=== PATIENT | male | born 1950 | race Caucasian/White ===

== ENCOUNTER 2017-06-28 10:28 | Day surgery (SDC) | payer MEDICARE, BC ==
[~2017-06-28 10:28] MED LIST: Buffered Lidocaine 0.9% SYRIN* 5 ML/SYR SYRINGE INTRADERM ONE; Dexamethasone IV* 4 MG/ML 1 ML (4 MG) IV SLOW PU ONE; Famotidine IV* 10 MG/ML 2 ML (20 mg) IV ONE
[2017-06-28] MEDS ORDERED: ceFAZolin 2 GM PREMIX (*) 2 GM/50 ML BAG IVPB ONE (10:38)
[2017-06-28] MEDS ORDERED: Famotidine IV* 10 MG/ML 2 ML (20 mg) ONE (10:38)
[2017-06-28] MEDS ORDERED: Dexamethasone IV* 4 MG/ML 1 ML (4 MG) ONE (10:38)
[2017-06-28] MEDS ORDERED: Buffered Lidocaine 0.9% SYRIN* 5 ML/SYR SYRINGE ONE (10:39)
[2017-06-28] MEDS ORDERED: Propofol* 10 MG/ML 20 ML BTL IV PUSH ONE (12:11)
[2017-06-28] MEDS ORDERED: Midazolam* 1 MG/ML 10 ML VIAL (10 MG) ONE (12:11)
[2017-06-28] MEDS ORDERED: fentaNYL* 50 MCG/ML 2 ML VIAL (100 MCG VIAL) ONE (12:11)
[2017-06-28] MEDS ORDERED: Ondansetron INJ* 2 MG/ML VIAL ONE (12:11)
[2017-06-28] MEDS ORDERED: Naloxone* 0.4 MG/ML 1 ML VIAL IV PRN (12:31)
[2017-06-28] MEDS ORDERED: Lidocaine 1% MPF wEPI 200,000* 30 ML SDV ONE (12:35)
[2017-06-28] MEDS ORDERED: Bupivacaine 0.25% SDV* 30 ML ONE (12:36)
[2017-06-28 15:09] VITALS: BP 119/64
== END 2017-06-28 15:22 | disposition home or self-care (01) ==
LOC: OR 10:28
PROVIDERS: ATTEND Plastic Surgery
DX: C44.329 Squamous cell carcinoma of skin of other parts of face (principal); I25.10 Atherosclerotic heart disease of native coronary artery without angina pectoris; I42.9 Cardiomyopathy, unspecified; Z79.01 Long term (current) use of anticoagulants; Z95.810 Presence of automatic (implantable) cardiac defibrillator; I48.92 Unspecified atrial flutter
CPT/HCPCS: 88305; 88331; 88332; J0690; J1100; J2001; J2250; J2405; J2704; J3010

== ENCOUNTER 2018-01-17 12:38 | Inpatient (IN) | payer MEDICARE, BC ==
[~2018-01-17 12:38] MED LIST changes: -Dexamethasone IV* 4 MG/ML 1 ML (4 MG) IV SLOW PU ONE; -Famotidine IV* 10 MG/ML 2 ML (20 mg) IV ONE
[2018-01-17] MEDS ORDERED: ceFAZolin 2 GM PREMIX (*) 2 GM/50 ML BAG IVPB ONE (12:49)
[2018-01-17] MEDS ORDERED: Tranexamic Acid 1,000 MG/10 ML 1,000 MG in NS 0.9% 100 ML* 100 ML IV ONE (13:30)
[2018-01-17 13:36] LABS: INR 0.98 (0.77-1.02)
[2018-01-17] MEDS ORDERED: Midazolam* 1 MG/ML 2 ML VIAL (2 MG) ONE (13:38)
[2018-01-17] MEDS ORDERED: Lidocaine 1%* 5 ML VIAL ONE (14:23)
[2018-01-17] MEDS ORDERED: ROPIVACAINE 5 MG/ML 30 ML BTL (0.5%) ONE (14:23)
[2018-01-17] MEDS ORDERED: Ropivacaine (OR use only) 2 MG/ML 10 ML ONE ×2 (14:49→17:04)
[2018-01-17] MEDS ORDERED: Propofol* 10 MG/ML 20 ML BTL IV PUSH ONE ×2 (15:49→16:26)
[2018-01-17] MEDS ORDERED: Bupivacaine-MPF SPINAL* 7.5 MG/ML - 2ML AMP ONE (15:49)
[2018-01-17] MEDS ORDERED: Lidocaine 2% PF * 5 ML VIAL ONE (15:49)
[2018-01-17] MEDS ORDERED: Phenylephrine INJ* 10 MG/ML 1 ML VIAL (10 MG) ONE (15:50)
[2018-01-17] MEDS ORDERED: Bupivacaine 0.5% PF 10 ML VIAL INJ ONE (16:51)
[2018-01-17] MEDS ORDERED: HYDROcodone/ACETAMIN 5-325 MG* 1 TAB PO PRN (17:04)
[2018-01-17] MEDS ORDERED: Ondansetron INJ* 2 MG/ML VIAL IV PRN ×2 (17:04→17:47)
[2018-01-17] MEDS ORDERED: DiMENhydriNATE IV* 50 MG/ML VIAL IV PUSH PRN (17:04)
[2018-01-17] MEDS ORDERED: fentaNYL* 50 MCG/ML 2 ML VIAL (100 MCG VIAL) IV PRN (17:04)
[2018-01-17] MEDS ORDERED: Naloxone* 0.4 MG/ML 1 ML VIAL IV PRN (17:04)
[2018-01-17] MEDS ORDERED: Morphine INJ* 2 MG/ML 1 ML SYRINGE (TWO MG - NEW SYRINGE VERSION) IV PRN ×2 (17:04→17:47)
[2018-01-17] MEDS ORDERED: Acetaminophen TAB* 325 MG PO PRN (17:04)
[2018-01-17] MEDS ORDERED: oxyCODONE/Acetamin 5/325 MG* TAB PO PRN (17:47)
[2018-01-17] MEDS ORDERED: Cyclobenzaprine TAB* 10 MG PO PRN (17:47)
[2018-01-17] MEDS ORDERED: Bisacodyl SUPP* 10 MG SUPP PR PRN (17:47)
[2018-01-17] MEDS ORDERED: Ondansetron TAB* 4 MG PO PRN (17:47)
[2018-01-17] MEDS ORDERED: Polyethylene Glycol 3350* 17 GM PACKET PO PRN (17:47)
[2018-01-17] MEDS ORDERED: diPHENhydraMINE IV* 50 MG/ML 1 ml VIAL (BENADRYL) IV PRN (17:47)
[2018-01-17] MEDS ORDERED: Magnesium Hydroxide LIQ* 30 ML UDC PO PRN (17:47)
[2018-01-17] MEDS ORDERED: HYDROcodone/ACETAMIN 5-325 MG* 1 TAB ONE (18:28)
--- NOTE | 2018-01-17 18:29 | RAD ---
INDICATION: Right knee arthroplasty COMPARISON: December 14, 2017 TECHNIQUE: Portable AP and crosstable lateral imaging was performed. FINDINGS: There is right knee arthroplasty. Both femoral and tibial components appear well seated. There is overlying cooling jacket. IMPRESSION: INTERVAL RIGHT KNEE ARTHROPLASTY.
[2018-01-17] MEDS ORDERED: Warfarin TAB(*) 6 MG PO ONE (21:00)
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
[2018-01-17] MEDS: Magnesium Hydroxide LIQ* 30 ML UDC PO SCH (21:39)
[2018-01-17] MEDS: Docusate CAP* 100 MG PO SCH (21:40)
[2018-01-17] MEDS: oxyCODONE/Acetamin 5/325 MG* TAB PO PRN (21:41)
[2018-01-17] MEDS: Digoxin TAB* 0.125 MG PO SCH (21:42)
[2018-01-17] MEDS: Sotalol TAB* 80 MG PO SCH (21:45)
[2018-01-17] MEDS: ceFAZolin 1 GM VIAL(*) 1 GM in NS 0.9% 50 ML* 50 ML IVPB SCH (21:46)
[2018-01-17] MEDS: Acetaminophen TAB* 325 MG PO SCH (21:52)
[2018-01-17] MEDS: oxyCODONE TAB* 5 MG TAB PO PRN (23:57)
[2018-01-18] MEDS: Acetaminophen TAB* 325 MG PO SCH ×3 (05:08→20:58)
[2018-01-18] MEDS: oxyCODONE/Acetamin 5/325 MG* TAB PO PRN ×4 (05:58→22:57)
[2018-01-18] MEDS: ceFAZolin 1 GM VIAL(*) 1 GM in NS 0.9% 50 ML* 50 ML IVPB SCH ×2 (06:07→14:18)
[2018-01-18 07:15] LABS: Hematocrit 36 % (42-52); Hemoglobin 11.9 g/dl (14.0-18.0); Mean Platelet Volume 7.7 um3 (7.4-10.4); Platelet Count 260 10^3/ul (150-450)
[2018-01-18 07:27] LABS: EGFR Non-African American 92.9 (>60)
[2018-01-18 07:51] LABS: INR 1.07 (0.77-1.02)
[2018-01-18] MEDS: Magnesium Hydroxide LIQ* 30 ML UDC PO SCH ×2 (08:22→20:58)
[2018-01-18] MEDS: Docusate CAP* 100 MG PO SCH ×2 (08:22→20:56)
[2018-01-18] MEDS: Digoxin TAB* 0.125 MG PO SCH ×2 (08:23→20:56)
[2018-01-18] MEDS: Sotalol TAB* 80 MG PO SCH ×2 (08:23→20:57)
--- NOTE | 2018-01-18 09:24 | PN ---
Progress Note - Progress Note Date of Service: 01/18/18 SOAP: Subjective: []Patient was seen and examined today. He is feeling well with well controlled right knee pain. He denies chest pain, shortness of breath, dizziness, nausea. He has a history of a right fused ankle. Objective: []General: Well appearing, NAD RLE: Right knee dressing CDI. Thigh soft and nontender. DP2+. Sensation intact distally. No DF/PF due to ankle fusion BL LE: Calves supple and nontender without erythema, edema or palpable cords Assessment: []SP right total knee arthroplasty Plan: []wbat PT/OT lovenox, coumadin 8 mg today Laboratory Last Values Hgb 11.9 g/dl (14.0-18.0) L 01/18/18 07:02 Hct 36 % (42-52) L 01/18/18 07:02 Plt Count 260 10^3/ul (150-450) 01/18/18 07:02 MPV 7.7 um3 (7.4-10.4) 01/18/18 07:02 INR (Anticoag Therapy) 1.07 (0.77-1.02) H 01/18/18 07:02 APTT 30.1 seconds (26.0-36.3) 01/17/18 13:15 Sodium 134 mmol/L (135-145) L 01/18/18 07:02 Potassium 4.1 mmol/L (3.5-5.0) 01/18/18 07:02 Chloride 101 mmol/L (101-111) 01/18/18 07:02 Carbon Dioxide 27 mmol/L (22-32) 01/18/18 07:02 Anion Gap 6 mmol/L (2-11) 01/18/18 07:02 BUN 18 mg/dL (6-24) 01/18/18 07:02 Creatinine 0.82 mg/dL (0.67-1.17) 01/18/18 07:02 Est GFR ( Amer) 112.4 (>60) 01/18/18 07:02 Est GFR (Non-Af Amer) 92.9 (>60) 01/18/18 07:02 BUN/Creatinine Ratio 22.0 (8-20) H 01/18/18 07:02 Glucose 194 mg/dL (70-100) H 01/18/18 07:02 Calcium 8.6 mg/dL (8.6-10.3) 01/18/18 07:02 Blood Type A Negative 01/17/18 13:15 Antibody Screen Negative 01/17/18 13:15 Vital Signs Temp 98.3 F 01/18/18 07:35 Pulse 70 01/18/18 08:23 Resp 16 01/18/18 08:24 BP 128/65 01/18/18 07:35 Pulse Ox 98 01/18/18 08:00 Intake & Output 01/17/18 01/18/18 01/18/18 18:59 06:59 18:59 Intake Total 1300 1200 1030 Output Total 550 1975 200 Balance 750 -775 830 Weight 226 lb 6.4 oz Intake: IV Fluids 7867 907 0137 ABX - CEFAZOLIN 50 50 LR 1300 250 980 Oral 900 Output: Urine 50 Watkins 350 1925 Emesis 200 Estimated Blood Loss 200 Other: # Bowel Movements 0
[2018-01-18] MEDS ORDERED: Digoxin TAB* 0.125 MG PO ONE (12:00)
[2018-01-18] MEDS: Enoxaparin(*) 30 MG/0.3 ML SYR SUBCUT SCH (12:32)
--- NOTE | 2018-01-18 12:39 | OP ---
OPERATIVE NOTE: DATE OF OPERATION: 01/17/18 DATE OF : 46 ATTENDING SURGEON: Pura Guerra MD TERRITORY SERVICE REPRESENTATIVE: BENITEZ Caruso Ms. did help throughout the procedure with preparation of the leg, wound retraction, manipulation of the knee, and wound closure. ANESTHESIOLOGIST: Dr. Jones. ANESTHESIA: Spinal. PRE-OP DIAGNOSIS: Severe end-stage degenerative osteoarthritis of the right knee joint. POST-OP DIAGNOSIS: Severe end-stage degenerative osteoarthritis of the right knee joint. OPERATIVE PROCEDURE: Right total knee arthroplasty. TOURNIQUET TIME: 68 minutes. COMPLICATIONS: None. ESTIMATED BLOOD LOSS: 300 cc. SPECIMEN: Bone and cartilage from the right knee joint sent to pathology. HARDWARE USED: This is cemented [employer] total knee arthroplasty hardware. Two packages of Simplex bone cement. For the femur, a size 7 right posterior stabilized Legion femoral component. For the tibia, a size 5 right Jagruti II tibial base plate. For the insert, an 11-mm posterior stabilized articular insert, size 5/6. For the patella, a 35-mm 3-peg All Poly patella. BRIEF HISTORY/INDICATION: Mr. Stone is a 68-year-old gentleman with years of increasingly severe right knee pain. Radiograph confirmed severe end-stage arthritis with [id number] contact. He failed conservative treatment with the antiinflammatories, pain medication, intraarticular injection, and physical therapy. Due to continued pain and decreased quality of life, he elected to undergo right total knee arthroplasty. Informed consent was obtained from the patient. He understood the risks of surgery included, but were not limited to bleeding, infection, damage to nearby structures, continued pain, need for further surgery, intraoperative fracture, nerve palsy, hardware failure or loosening, knee stiffness, loss of motion, stroke, heart attack, blood clot, and . He wished to proceed. INTRAOPERATIVE FINDINGS: Intraoperatively, the patient was noted to have severe flexion contracture of 20 degrees to begin the case. He had significant hamstring tightness throughout the case. He had complete loss of cartilage in the medial and patellofemoral compartment. DESCRIPTION OF PROCEDURE: Mr. Stone was identified in the preanesthesia unit. His right lower extremity was marked as the correct operative site. Informed consent was signed and placed in the chart. The patient was taken to the operating room and placed under spinal anesthesia. A Watkins catheter was placed. Tourniquet was placed on the right thigh. Right lower extremity was prepped and draped in the usual sterile fashion. Preop time-out was made to correctly identify the patient, side, and site. Appropriate perioperative antibiotics were given within 1 hour of incision. Tourniquet was inflated with total tourniquet time for this procedure was 68 minutes. A midline incision was made with a 10-blade and carried down to the extensor mechanism. A new 10-blade was used to make a standard medial parapatellar arthrotomy. Patella was subluxed laterally. Electrocautery was used to subperiosteally elevate the soft tissue off the superomedial tibia to the mid sagittal plane. The knee was flexed up. The anterior horn of the lateral meniscus and ACL were sharply released. A drill was used to enter the distal femur. Intramedullary distal femoral cutting guide was pinned on the distal femur. Oscillating saw was used to make a distal femoral cut. Next, the external rotation guide was pinned on the distal femur. Distal femur was sized to a size 7. Size 7 multi-cutting jig was pinned on the distal femur. Oscillating saw was used to make the appropriate 4 chamfer cuts. The PCL was completely released and tibia was subluxed anteriorly. Intramedullary proximal tibial cutting guide was placed and pinned into position. Oscillating saw was used to make the proximal tibial cut perpendicular to the mechanical axis of the tibia. The bone was carefully removed. The knee was brought out into full extension. Spacer block had good fit with the knee in full extension. Medial and lateral ligaments were well balanced. Flexion and extension gap was well balanced. The knee was flexed up. Lamina chiropractic care was placed both medially and laterally. Any remaining meniscus was carefully removed using electrocautery. Curved osteotome was used to remove any posterior osteophytes. Throughout the case, a hamstring contracture was noted to be significant. The knee was flexed up. Tibial tray and drop tommie showed satisfactory tibial cut. A size 7 right femoral trial was impacted onto the distal femur and had excellent fit. The box for the posterior stabilized implant was prepared using a reamer and box cut osteotome. Size 5 tibial tray trial with an 11-mm insert trial was placed and the knee was taken through a range of motion. The knee had full extension to 130 degrees of flexion with satisfactory patellofemoral tracking. The patella was everted. A 9 mm of patellar bone and cartilage was carefully removed using an oscillating saw. Patella was sized to a size 35. Three peg holes were drilled through the size 35 guide. 35 trial patella was placed and the knee was taken through a range of motion. There was satisfactory patellofemoral tracking. All trials were then removed. The tibia was subluxed anteriorly and sized to a size 5. Proximal tibia was prepared using a size 5 keel punch. All bony cut surfaces were copiously irrigated with sterile saline and dried. Final implants were cemented into place starting with the tibia followed by the femur and last the patella. An 11 mm insert trial was locked into position on the tibial tray. The tourniquet was turned down and cement was allowed to fully cure. The insert trial was removed and any excess cement was removed. An 11 mm posterior stabilized insert was locked into position on the tibial tray. Stability of the insert was checked and rechecked and noted to be stable. The knee was once again copiously irrigated with sterile saline. The extensor mechanism was closed using interrupted #1 Vicryl. The rest of the incision was closed in a layered fashion using 0 and 2-0 Vicryl. Skin was closed using running 3-0 nylon suture. Sterile Xeroform, 4x4s, and Webril were used to cover the incision. Asad wrap and cold pack were placed over this. The patient's anesthesia was reversed without difficulty. He was taken to the PACU in stable condition. Intended weightbearing will be weightbearing as tolerated. Intended DVT prophylaxis will be Coumadin with a Lovenox bridge. [id number]/[id number] #: [id number] KANA
[2018-01-18] MEDS: oxyCODONE TAB* 5 MG TAB PO PRN (14:23)
--- NOTE | 2018-01-18 15:27 | PN ---
Subjective Date of Service: 01/18/18 Interval History: Pain control R knee pain is adequate. OOB today. Some nausea. Objective Active Medications: Acetaminophen (Tylenol Tab*) 975 mg PO Q8H [facility] Last Admin: 01/18/18 11:45 Dose: Not Given Bisacodyl (Dulcolax Supp*) 10 mg IN DAILY PRN PRN Reason: constipation Cyclobenzaprine HCl (Flexeril Tab*) 10 mg PO TID PRN PRN Reason: SPASMS Digoxin (Lanoxin Tab*) 0.125 mg PO BID [facility] Last Admin: 01/18/18 08:23 Dose: 0.125 mg Diphenhydramine HCl (Benadryl Iv*) 12.5 mg IV Q6H PRN PRN Reason: PRURITIS Docusate Sodium (Colace Cap*) 100 mg PO BID [facility] Last Admin: 01/18/18 08:22 Dose: 100 mg Enoxaparin Sodium (Lovenox(*)) 30 mg SUBCUT Q24H [facility] Last Admin: 01/18/18 12:32 Dose: 30 mg Lactated Ringer's (Lactated Ringers 1000 Ml Bag*) 1,000 mls @ 100 mls/hr IV PER RATE [facility] Last Admin: 01/18/18 09:10 Dose: 100 mls/hr Lactulose (Lactulose*) 30 ml PO Q6H PRN PRN Reason: constipation Magnesium Hydroxide (Milk Of Magnesia Liq*) 30 ml PO BID [facility] Last Admin: 01/18/18 08:22 Dose: 30 ml Magnesium Hydroxide (Milk Of Magnesia Liq*) 30 ml PO Q6H PRN PRN Reason: constipation Morphine Sulfate (Morphine Inj ((Syringe))*) 4 mg IV Q2H PRN PRN Reason: PAIN Ondansetron HCl (Zofran Inj*) 4 mg IV Q6H PRN PRN Reason: nausea Ondansetron HCl (Zofran Tab*) 4 mg PO Q6H PRN PRN Reason: NAUSEA Oxycodone HCl (Roxycodone Tab*) 10 mg PO Q4H PRN PRN Reason: SEVERE PAIN Last Admin: 01/18/18 14:23 Dose: 10 mg Oxycodone/Acetaminophen (Percocet 5/325 Tab*) 1 tab PO Q4H PRN PRN Reason: PAIN Oxycodone/Acetaminophen (Percocet 5/325 Tab*) 2 tab PO Q4H PRN PRN Reason: PAIN Last Admin: 01/18/18 11:21 Dose: 2 tab Pharmacy Profile Note (Coumadin Daily Reminder*) 1 note FOLLOW UP 1700 ANTOINETTE Polyethylene Glycol/Electrolytes (Miralax*) 17 gm PO DAILY PRN PRN Reason: Constipation Sotalol HCl (Betapace Tab*) 40 mg PO BID [facility] Last Admin: 01/18/18 08:23 Dose: 40 mg Vital Signs - 8 hr 01/18/18 01/18/18 01/18/18 07:35 08:00 08:23 Temperature 98.3 F Pulse Rate 64 70 Respiratory 16 18 Rate Blood Pressure 128/65 (mmHg) O2 Sat by Pulse 98 98 Oximetry 01/18/18 01/18/18 01/18/18 08:24 11:15 11:21 Temperature 98.3 F Pulse Rate 61 Respiratory 16 16 16 Rate Blood Pressure 144/71 (mmHg) O2 Sat by Pulse 97 Oximetry 01/18/18 01/18/18 01/18/18 12:32 14:21 14:23 Temperature Pulse Rate 76 Respiratory 18 18 Rate Blood Pressure (mmHg) O2 Sat by Pulse Oximetry Oxygen Devices in Use Now: None Appearance: Alert, supine in bed. In good spirits. Looks comfortable. Eyes: No Scleral Icterus Respiratory: Symmetrical Chest Expansion and Respiratory Effort, Clear to Auscultation, Clear to Percussion Cardiovascular: NL Sounds; No Murmurs; No JVD, RRR, No Edema, - Extremities: No Edema, No Clubbing, Cyanosis, - - cooling device on R knee Skin: No Rash or Ulcers, No Nodules or Sclerosis, - Neurological: Alert and Oriented x 3, NL Sensation Result Diagrams: 01/18/18 07:02 01/18/18 07:02 Assess/Plan/Problems-Billing Assessment: - Patient Problems (1) Afib Current Visit: No Status: Chronic Priority: Medium Code(s): I48.91 - UNSPECIFIED ATRIAL FIBRILLATION SNOMED Code(s): 96680579 Comment: S/P maze procedure, PPM. Continue digoxin, sotalol, warfarin. Warfarin dosing per Dr. Guerra at this point. (2) Status post mitral valve repair Current Visit: No Status: Acute Priority: Low Code(s): Z98.89 - OTHER SPECIFIED POSTPROCEDURAL STATES * DO NOT USE * SNOMED Code(s): 344287272 Comment: Followed by Dr. Hurley. (3) Cardiomyopathy Current Visit: No Status: Chronic Code(s): I42.9 - CARDIOMYOPATHY, UNSPECIFIED SNOMED Code(s): 27689793 Comment: LVEF 35-40% 06/2014, undoubtably has had more recent echo in Dr. Hurley's office. (4) History of total right knee replacement (TKR) Current Visit: Yes Status: Acute Code(s): Z96.651 - PRESENCE OF RIGHT ARTIFICIAL KNEE JOINT SNOMED Code(s): 1193607673931 Comment: 01/17/2018. Management per Dr. Guerra.
[2018-01-18] MEDS ORDERED: Warfarin TAB(*) 4 MG PO ONE (18:00)
[2018-01-19] MEDS: oxyCODONE/Acetamin 5/325 MG* TAB PO PRN (03:53)
[2018-01-19] MEDS: Acetaminophen TAB* 325 MG PO SCH ×2 (04:11→11:45)
[2018-01-19 06:07] LABS: Hematocrit 31 % (42-52); Hemoglobin 10.3 g/dl (14.0-18.0); Mean Platelet Volume 7.8 um3 (7.4-10.4); Platelet Count 206 10^3/ul (150-450)
[2018-01-19 06:22] LABS: INR 1.31 (0.77-1.02)
[2018-01-19] MEDS: oxyCODONE TAB* 5 MG TAB PO PRN (07:33)
[2018-01-19] MEDS: Magnesium Hydroxide LIQ* 30 ML UDC PO SCH (08:51)
[2018-01-19] MEDS: Docusate CAP* 100 MG PO SCH (08:51)
[2018-01-19] MEDS: Digoxin TAB* 0.125 MG PO SCH (08:52)
[2018-01-19] MEDS: Sotalol TAB* 80 MG PO SCH (08:52)
--- NOTE | 2018-01-19 09:10 | PN ---
Progress Note - Progress Note Date of Service: 01/19/18 SOAP: Subjective: []Patient seen at bedside. He feels well aside form intermittent vomiting which is not associated with long episodes of nausea but rather vomit just after eating and returning to feeling well. Patient vomit while I was in his room today. Denies chest pain, shortness of breath, dizziness. Objective: []General: Well appearing, NAD RLE: Right knee dressing changed. Incision CDI without surrounding erythema. Thigh soft and nontender. DP2+. Sensation intact distally. No DF/PF due to ankle fusion but able to wiggle toes on operative leg BL LE: Calves supple and nontender without erythema, edema or palpable cords Assessment: []SP right total knee arthroplasty Plan: []WBAT PT/OT lovenox, coumadin 6 mg today scopalamine patch ordered Vital Signs Temp 97.5 F 01/19/18 07:23 Pulse 64 01/19/18 08:52 Resp 18 01/19/18 07:33 BP 123/66 01/19/18 07:23 Pulse Ox 94 01/19/18 07:23 Intake & Output 01/18/18 01/19/18 01/19/18 18:59 06:59 18:59 Intake Total 1932 1020 Output Total 300 320 Balance 1632 700 Intake: IV Fluids 1692 ABX - CEFAZOLIN 105 LR 1587 Oral 240 1020 Output: Urine 100 320 Emesis 200 Other: Estimated Void Medium Medium # Voids 1 1 Laboratory Last Values Hgb 10.3 g/dl (14.0-18.0) L 01/19/18 05:36 Hct 31 % (42-52) L 01/19/18 05:36 Plt Count 206 10^3/ul (150-450) 01/19/18 05:36 MPV 7.8 um3 (7.4-10.4) 01/19/18 05:36 INR (Anticoag Therapy) 1.31 (0.77-1.02) H 01/19/18 05:36 APTT 30.1 seconds (26.0-36.3) 01/17/18 13:15 Sodium 134 mmol/L (135-145) L 01/18/18 07:02 Potassium 4.1 mmol/L (3.5-5.0) 01/18/18 07:02 Chloride 101 mmol/L (101-111) 01/18/18 07:02 Carbon Dioxide 27 mmol/L (22-32) 01/18/18 07:02 Anion Gap 6 mmol/L (2-11) 01/18/18 07:02 BUN 18 mg/dL (6-24) 01/18/18 07:02 Creatinine 0.82 mg/dL (0.67-1.17) 01/18/18 07:02 Est GFR ( Amer) 112.4 (>60) 01/18/18 07:02 Est GFR (Non-Af Amer) 92.9 (>60) 01/18/18 07:02 BUN/Creatinine Ratio 22.0 (8-20) H 01/18/18 07:02 Glucose 194 mg/dL (70-100) H 01/18/18 07:02 Calcium 8.6 mg/dL (8.6-10.3) 01/18/18 07:02 Blood Type A Negative 01/17/18 13:15 Antibody Screen Negative 01/17/18 13:15
[2018-01-19] MEDS ORDERED: Scopolamine 1.5 mg* PATCH TRANSDERM SCH (10:00)
[2018-01-19 11:29] VITALS: BP 127/59
[2018-01-19] MEDS: Enoxaparin(*) 30 MG/0.3 ML SYR SUBCUT SCH (11:46)
[2018-01-19] MEDS ORDERED: Warfarin TAB(*) 6 MG PO SCH (17:00)
== END 2018-01-19 14:29 | disposition home health service (06) | DRG 470 ==
LOC: AA 12:38 → SSU 19:53
PROVIDERS: ADMIT Orthopaedic Surgery Adult Reconstructive Orthopaedic Surgery; ATTEND Orthopaedic Surgery Adult Reconstructive Orthopaedic Surgery
PROC: 0SRC0J9 Replacement of Right Knee Joint with Synthetic Substitute, Cemented, Open Approach (ICD-10-PCS; principal; 2018-01-17 15:00)
DX: M17.11 Unilateral primary osteoarthritis, right knee (principal); I42.9 Cardiomyopathy, unspecified; I25.10 Atherosclerotic heart disease of native coronary artery without angina pectoris; M25.461 Effusion, right knee; I48.2 Chronic atrial fibrillation; I10 Essential (primary) hypertension; K63.5 Polyp of colon; N40.0 Benign prostatic hyperplasia without lower urinary tract symptoms; H26.9 Unspecified cataract; R11.2 Nausea with vomiting, unspecified; M24.561 Contracture, right knee; M25.761 Osteophyte, right knee; Z95.0 Presence of cardiac pacemaker; Z98.1 Arthrodesis status; Z85.828 Personal history of other malignant neoplasm of skin; Z90.49 Acquired absence of other specified parts of digestive tract; Z88.8 Allergy status to other drugs, medicaments and biological substances; Z82.49 Family history of ischemic heart disease and other diseases of the circulatory system; Z80.51 Family history of malignant neoplasm of kidney; Z80.0 Family history of malignant neoplasm of digestive organs; Z82.61 Family history of arthritis; Z80.42 Family history of malignant neoplasm of prostate; Z83.511 Family history of glaucoma; Z81.8 Family history of other mental and behavioral disorders; Z95.810 Presence of automatic (implantable) cardiac defibrillator
CPT/HCPCS: 36415; 80048; 85014; 85018; 85049; 85610; 85730; 86850; 86900; 86901; A9270-GY; G8978-GP-CJ; G8979-GP-CH; G8987-GO-CJ; G8988-GO-CJ; G8989-GO-CJ; J0690; J1650; J2250; J2704; J2795

== ENCOUNTER 2021-04-23 08:32 | Observation (INO) ==
[~2021-04-23 08:32] MED LIST changes: -Buffered Lidocaine 0.9% SYRIN* 5 ML/SYR SYRINGE INTRADERM ONE; +Buffered Lidocaine 1% SYRIN 1 ml INTRADERM ONE; +Lactated Ringers 1000 ml BAG 1,000 ML IV SCH
[2021-04-23] MEDS ORDERED: ceFAZolin 2 GM in NS PREMIX 2 GM/100 ML BAG IVPB ONE (09:13)
[2021-04-23 09:23] LABS: INR 1.03 (0.86-1.15)
[2021-04-23 10:04] LABS: Magnesium 2.1 mg/dL (1.9-2.7); Potassium 4.8 mmol/L (3.5-5.0)
[2021-04-23 10:24] LABS: Digoxin 0.8 ng/ml (0.8-2.0)
[2021-04-23] MEDS ORDERED: Ropivacaine 5 MG/ML 20 ML VIAL 0.5% (100 MG) ONE (11:10)
[2021-04-23] MEDS ORDERED: fentaNYL 100 mcg/2 ml 50 MCG/ML VIAL ONE (11:12)
[2021-04-23] MEDS ORDERED: Midazolam 2 mg/2 ml VIAL 1 mg/ml 2 ml VIAL (2 mg) ONE (11:12)
[2021-04-23] MEDS ORDERED: Phenylephrine 40 mcg/mL 10mL (400mcg) SYRINGE ONE (12:06)
[2021-04-23] MEDS ORDERED: Lactulose 30 ml UDC PO PRN (12:31)
[2021-04-23] MEDS ORDERED: diPHENhydraMINE 25 mg TAB PO PRN (12:31)
[2021-04-23] MEDS ORDERED: Magnesium Hydroxide LIQ 30 ML UDC PO PRN (12:31)
[2021-04-23] MEDS ORDERED: Morphine 2 MG/ML SYRINGE IV PRN (12:31)
[2021-04-23] MEDS ORDERED: diPHENhydraMINE IV 50 MG/ML 1 ml VIAL (BENADRYL) IV PRN ×2 (12:31→14:58)
[2021-04-23] MEDS ORDERED: Ondansetron 4 mg VIAL 2 MG/ML 2 ml VIAL ONE (13:39)
[2021-04-23] MEDS ORDERED: Propofol 10 MG/ML 20 ML BTL ONE ×2 (13:41→14:25)
[2021-04-23] MEDS ORDERED: Naloxone 0.4 mg VIAL 0.4 mg/ml 1 ml VIAL IV PRN (14:58)
[2021-04-23] MEDS ORDERED: Prochlorperazine 5 mg/ml 2 ml VIAL (10 mg) IV PRN (14:58)
[2021-04-23] MEDS ORDERED: HYDROmorphone 1 MG/1 ML SYRINGE ONE (15:04)
[2021-04-23] MEDS: HYDROmorphone 1 MG/1 ML SYRINGE IV PRN ×4 (15:06→15:36)
[2021-04-23] MEDS: Lactated Ringers 1000 ml BAG 1,000 ML IV SCH (16:35)
[2021-04-23] MEDS ORDERED: Dextrose 50% Syringe 50 ml 25 GM/50 ML SYRINGE IV PUSH PRN (16:59)
[2021-04-23] MEDS ORDERED: Cholecalciferol (VIT D3) 1,000 unit TAB PO SCH (18:00)
[2021-04-23] MEDS ORDERED: ALOGLIPTIN PO SCH (21:00)
[2021-04-23] MEDS ORDERED: METFORMIN PO SCH (21:00)
[2021-04-23] MEDS: Magnesium Hydroxide LIQ 30 ML UDC PO SCH (21:05)
[2021-04-23] MEDS: ceFAZolin 1 GM ADVAN 1 GM in NS 0.9% 50 ML 50 ML IVPB SCH (21:05)
[2021-04-23 23:35] LABS: Urine Appearance Cloudy; Urine Bilirubin Negative (Negative); Urine Blood 2+ (Negative); Urine Color Yellow; Urine Glucose 1+(50 mg/dL) (Negative); Urine Ketones Negative (Negative); Urine Nitrite Negative (Negative); Urine Protein Negative (Negative); Urine Specific Gravity 1.017 (1.002-1.030); Urine Urobilinogen Negative (Negative)
[2021-04-23 23:39] LABS: Urine Bacteria Absent (Absent); Urine Red Blood Cell 3+(>10/hpf) (Absent); Urine White Blood Cell 1+(6-10/hpf) (Absent); Urine Yeast Present (Absent)
[2021-04-24] MEDS: Lactated Ringers 1000 ml BAG 1,000 ML IV SCH (02:56)
[2021-04-24] MEDS: ceFAZolin 1 GM ADVAN 1 GM in NS 0.9% 50 ML 50 ML IVPB SCH ×2 (04:11→12:41)
[2021-04-24 06:06] LABS: ABS Eosinophils 0.1 10^3/ul (0-0.6); ABS Lymphocytes 0.8 10^3/ul (1.0-4.8); ABS Neutrophils 7.8 10^3/ul (1.5-7.7); Eosinophil % 0.6 %; Hematocrit 34 % (42-52); Hemoglobin 11.2 g/dL (14.0-18.0); Lymphocyte % 8.2 %; Mean Corpuscular HGB Conc 33 g/dL (31-36); Mean Corpuscular Hemoglobin 28 pg (27-31); Mean Corpuscular Volume 84 fL (80-94); Mean Platelet Volume 7.5 fL (7.4-10.4); Platelet Count 238 10^3/uL (150-450); Red Blood Count 4.05 10^6 /uL (4.18-5.48); Red Cell Distribution Width 15 % (10-15); White Blood Count 9.7 10^3/uL (3.5-10.8)
[2021-04-24 06:20] LABS: Calcium 8.1 mg/dL (8.6-10.3); Potassium 4.4 mmol/L (3.5-5.0)
[2021-04-24] MEDS: Magnesium Hydroxide LIQ 30 ML UDC PO SCH (08:34)
[2021-04-24 08:35] LABS: Magnesium 1.8 mg/dL (1.9-2.7)
[2021-04-24] MEDS ORDERED: Vitamin THERAPEUTIC TAB PO SCH (09:00)
[2021-04-24 10:07] LABS: INR 1.17 (0.86-1.15)
[2021-04-24] MEDS ORDERED: Magnesium Sulfate IV 1GM/100ML 1 GM/100 ML BAG IV ONE (10:59)
[2021-04-24] MEDS ORDERED: Enoxaparin 40 MG/0.4 ML SYR SUBCUT SCH (12:00)
[2021-04-24 12:03] VITALS: BP 122/67
== END 2021-04-24 13:45 | disposition home or self-care (01) ==
LOC: OR 08:32 → SSU 08:32
PROVIDERS: ADMIT Orthopaedic Surgery Adult Reconstructive Orthopaedic Surgery; ATTEND Orthopaedic Surgery Adult Reconstructive Orthopaedic Surgery